=== PATIENT | male | born 1965 | race Caucasian/White ===

== ENCOUNTER 2025-07-22 10:07 | Outpatient (AMB) | payer MEDICAID, SELFPAY ==
--- OUTSIDE RECORDS SUMMARY | 2024-08-13 08:30 | XMS_ITS ---
Author Organization [facility] Address [address] [place] [address] Care Team Providers Care Front End Architect Name Role Phone NO, PCP Primary Care Provider Jazmín Paris Unavailable [phone] [facility], Nursing Unavailable [phone] REASON FOR VISIT phone: intake Social History Sex Assigned At : Social History Observation Description Sex Assigned At Male Encounters Encounter Location Date Provider Diagnosis [address] [address] 08/13/2024 Nursing [facility] Plan Of Treatment No Information Progress Notes * FAWADMartinDOB: 4 (60 yo M)Acc No.[id number]:08/13/2024 Progress Notes Patient: Martin ADLER Provider: Peter orr [facility] :1965 A ge:59 Y S ex:Male Date:08/13/2024 Address:[address] [place] [address] [id number] Pcp:PCP NO Subjective: * Chief Complaints: * 1 . Phone: intake. * Medical History: Objective: * Vitals: Assessment: Plan: * Treatment: * Images: Billing Information: * Visit Code: * Procedure Codes: * Electronic signature of Lizet rosas [facility] on 07/22/2025 at 11:24 AM EST Sign off status: Pending * Provider: Peter orr [facility] Date: 0 08/13/2024 Generated for Denisha aragon/Sky/Giorgio on: 09/22/2024 11:24 AM EST
--- NOTE | 2025-07-22 10:12 | MHC.OFFVIS ---
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 He has a 40-year history of low back pain, which began after an industrial accident in 1986. He describes the pain as a constant, 7/10 stabbing, cramping, pinching, and crushing sensation in the lower back that radiates to both legs, more pronounced on the right side, and into the thighs. Symptoms are exacerbated by standing, walking, sitting, bending down, and climbing stairs. Pain is alleviated by lying down. He reports associated muscle spasms in the back that can lock up his whole core. The pain affects his sleep, limits walking to less than a mile, and has decreased his social life and ability to do home chores. Past treatments include injections over 40 years ago which provided no relief, and a recent six-week course of physical therapy which he reports made his pain worse. He previously took propoxyphene for approximately 20 years but stopped around 2005 due to escalating doses. He has a medical history significant for degenerative joint disease, lumbar spinal stenosis, hypertension, and arthritis in his back and both hips. Patient denies any history of cardiac or respiratory issues, stroke, seizures, blood disorders, or cancer. The patient is currently on state disability and has applied for SSDI. 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 He denies smoking, alcohol use, and marijuana use. Pain Description - Onset: Approximately 40 years ago, post-industrial accident in 1986. - Location and Radiation: Lower back radiating to both legs, more pronounced on the right. - Quality and Character: Constant, stabbing, cramping, pinching, and crushing. - Exacerbating Factors: Standing, walking, sitting, bending down, climbing stairs. - Relieving Factors: Lying down and slightly bending forward. - Functional Interference: Affects sleep, limits walking, travels, restricts social and home activities. Pain Management - Affect: Pain disrupts sleep and social activities. - Analgesia: Currently using aspirin; pain rated 7/10. - Adverse Effects: None reported. - Activities of Daily Living: Limited function, impacts walking, travel, social interaction, and home chores. - Aberrant Drug Related Behaviors: None reported. Oswestry Low Back Pain Disability Score=22 [facility] Medical History (Updated 07/22/25 @ 11:49 by ELIANE Sainz) Chronic low back pain Lumbosacral spondylosis Lumbar degenerative disc disease Lumbar spinal stenosis HTN (hypertension) Review of Systems Narrative - Musculoskeletal: Reports chronic back pain radiating to legs, muscle spasms, arthritis, pain during movements, walking, bending or lifting. - Neurological: Reports pain radiating to legs, R>L. Denies bladder or bowel dysfunction or saddle anesthesia. - Psychiatric: Denies anxiety or depression. Const All systems reviewed & are unremarkable except as noted in HPI and below Card Denies chest pain at rest, Denies chest pain with activity, Denies claudication, Denies leg edema, Denies radiating jaw, neck or arm pain, Denies palpitations, Denies dyspnea and Denies dyspnea on exertion Resp Denies dyspnea and Denies dyspnea on exertion Endo Denies palpitations Physical Exam Vital Signs: Last Vital Signs Pulse 82 07/22/25 10:19 BP 205/117 H 07/22/25 10:20 Pulse Ox 98 07/22/25 10:19 Oxygen Delivery Method Room Air 07/22/25 10:19 BMI result Body Mass Index 31.9 General: Appears afebrile. Alert and oriented. Mood and affect appropriate. Follows and participates in conversation appropriately. Respiratory effort is unlabored. No cough. Able to transition from sit to stand unassisted. Moderate difficulty rising from seated position due to pain. Ambulates with antalgic gait, with mild limping. General: Yes no CVA tenderness Back/Spine/Pelvis Other: Limited lumbar ROM due to pain with flexion, bending and extension. No midline TTP in cervical, thoracic or lumbar regions. Demonstrates 5/5 left and 4/5 right strength of quadriceps bilaterally as well as flexion/dorsiflexion of bilateral feet against resistance. 2+ pedal pulses bilaterally. Straight leg rise with dorsiflexion positive bilaterally. +1 patellar and achilles reflexes bilaterally. Facet loading test positive bilaterally. Mild groin pain with I/E hip rotations on the right. Valsalva maneuver is positive. Back: no CVA tenderness Cervical Spine: cervical ROM normal, cervical muscular tenderness, No Cervical spine scars present and No Cervical spine tenderness Thoracic/Lumbar Spine: thoracic and lumbar spine normal to inspection, No Thoracic/lumbar spine scar(s), Lasegue's sign positive bilateral and localized, pain with thoraco-lumbar ROM, paraspinal muscle tenderness, thoraco-lumbar ROM limited, No thoracic spinal tenderness and lumbar spinal tenderness (L4-S1) Sacroiliac joints: bilaterally (+Vaughn's ) tender to palpation Extrem General: Yes capillary refill normal, Yes no clubbing, cyanosis or edema and Yes no calf tenderness Results Reviewed Results Reviewed: MRI LUMBAR SPINE WITHOUT CONTRAST 05/26/25 [facility] CLINICAL INFORMATION: Low back pain with bilateral lower extremity TECHNICAL INFORMATION: 1. Sagittal and axial T1. 2. Sagittal and axial T2. 3. Sagittal STIR. SEDATION: None. COMPARISON: None. INTERPRETATION: There is well-formed disc S1-S2. Conus shows normal tapering and ends at L1. Included cord has normal internal signal and cauda equina is unremarkable. L5-S1: Advanced disc degeneration. There is likely vacuum phenomena with small Schmorl's nodes across the endplates endplates and intensive Modic type I endplate changes. Posterior disc osteophyte complex contacts traversing S1 nerves and results in mild bilateral foraminal narrowing, greater to the right. L4-5: Moderate disc degeneration with mild retrolisthesis. Posterior disc osteophyte complex indents the ventral aspect of the thecal sac and results in mild bilateral foraminal narrowing. L3-4: Mild to moderate disc degeneration with mild retrolisthesis. Left far lateral annular fissure is present. No disc contour abnormality, spinal canal or significant foraminal stenosis is identified. L2-3: Mild disc degeneration with mild retrolisthesis. A shallow 2 mm central disc protrusion indents the ventral aspect of the thecal sac without neural impingement. No neural foraminal narrowing. L1-2: Disc height and hydration are preserved. No disc contour abnormality, spinal canal or foraminal stenosis is identified. T12-L1: Mild disc desiccation and moderate disc height loss. No disc contour abnormality, spinal canal or foraminal stenosis is identified. Lumbar vertebral body heights are within normal limits. With exception of the described degenerative endplate reaction marrow signal throughout the column and pelvis is unremarkable. Paraspinous soft tissues are unremarkable CONCLUSION: 1. L5-S1, advanced disc degeneration and intense discogenic endplate edema. Posterior disc osteophyte complex contacts traversing S1 nerves and results in mild bilateral foraminal narrowing, greater to the right. 2. L2-L3, shallow 2 mm central disc protrusion indents the ventral aspect of the thecal sac without impingement. 3. L4-L5, posterior disc osteophyte indents the ventral aspect of the thecal sac and results in mild bilateral foraminal narrowing. Assessment & Plan Assessment & Plan (1) Lumbar degenerative disc disease: Code(s): M51.369 - Other intervertebral disc degeneration, lumbar region without mention of lumbar back pain or lower extremity pain Category: Medical (2) Lumbosacral spondylosis: Code(s): M47.817 - Spondylosis without myelopathy or radiculopathy, lumbosacral region Category: Medical (3) Chronic low back pain: Code(s): M54.50 - Low back pain, unspecified; G89.29 - Other chronic pain Category: Medical (4) Lumbar radiculopathy: Code(s): M54.16 - Radiculopathy, lumbar region Category: Medical (5) Vertebrogenic low back pain: Code(s): M54.51 - Vertebrogenic low back pain Category: Medical Plan The management of the patient's chronic low back pain, attributed to vertebrogenic pain due to multilevel degenerative disc disease with endplate edema (Modic changes), spinal stenosis, and facet arthropathy, was thoroughly discussed. MRI findings correlate with his symptoms. Procedural options were addressed: lumbar medial branch blocks for arthritis and transforaminal epidural steroid injection for discogenic pain, radiculopathy, and disc edema. Future advanced procedural options, such as Intracept basivertebral nerve ablation and spinal cord stimulation, were introduced for consideration if injections prove insufficient. The patient also planning a second opinion from [facility] and plans to consult them soon. Arrangements will be made to acquire comprehensive medical records from his primary care provider and imaging from [facility]. Follow-up will occur as required, contingent upon his decision. Patient was strongly advised to go to ER for elevated BP with known HTN and recent intake of his BP medications. He is asymptomatic and reports his BP usually runs this high. Patient declined ER visit and plans to follow up with his PCP. All questions and concerns have been answered and patient agreed with the treatment plan. Follow up as needed. Patient was informed and verbally consented to the use of an ambient scribe for clinic note documentation during this visit. Coding Level of Care Code New Pt Level 4 (65122) Diagnoses Lumbar degenerative disc disease M51.369 Lumbosacral spondylosis M47.817 Chronic low back pain M54.50; G89.29 Lumbar radiculopathy M54.16 Vertebrogenic low back pain M54.51
[2025-07-22 10:19] VITALS: BP 216/114; PULSE 82; O2SAT 98; BMI 31.9
[2025-07-22 10:20] VITALS: BP 205/117
[2025-07-22 10:58] VITALS: BP 208/124
--- OUTSIDE RECORDS SUMMARY | 2025-07-22 11:24 | XMS_ITS | Clinical Summary ---
Author Organization [facility] [employer] Address [address] [place] [address] Care Team Providers Care Supervisor Personnel Clerks Name Role Phone Unavailable Primary Care Provider Unavailabl e Social History Tobacco Use Types Packs/Day Years Used Date Smoking Tobacco: Never Assessed Sex and Gender Information Value Date Recorded Sex Assigned at Not on file Legal Sex Male 9:22 PM EDT Gender Identity Not on file Sexual Orientation Not on file Plan of Treatment Health Maintenance Due Date Last Done Comments CT Colonography 1964 Colonoscopy 1965 Depression Screening 1965 FIT DNA/Cologuard 1965 FOBT 1965 Lipid Panel 1965 SDOH Screening 1965 Sigmoidoscopy 1965 Disability Screening 1965 Alcohol/Substance Use Screening 1976 Tobacco Screening 1976 Hepatitis C Screening 1982 DTaP/Tdap/Td Vaccines (1 - Tdap) 1983 Pneumococcal Vaccine: 50+ Years (1 of 1 - PCV) 2014 Zoster Vaccines (1 of 2) 2014 COVID-19 Vaccine (1 - 2024-2 6 season) 2025 Influenza Vaccine (#1) 2025 Colorectal Cancer Screening 01/11/2026 FIT 01/11/2026 01/11/2025, 01/10/2025 RSV Patients and Patients Aged 60 years or older (1 - 1-dose 75+ series) 2039 HIV Screening Completed 08/20/2024 HIB Vaccines Aged Out No longer eligi ble based on patient's age to complete this topic HPV Vaccines Aged Out No longer eligi ble based on patient's age to complete this topic Hepatitis A Vaccines Aged Out No long er eligible based on patient's age to complete this topic Hepatitis B Vaccines Aged Out No long er eligible based on patient's age to complete this topic IPV Vaccines Aged Out No longer eligi ble based on patient's age to complete this topic Meningococcal B Vaccine Aged Out No l onger eligible based on patient's age to complete this topic Meningococcal Vaccine Aged Out No austyn henry eligible based on patient's age to complete this topic RSV under 20 months Aged Out No longe r eligible based on patient's age to complete this topic Rotavirus Vaccines Aged Out No longer eligible based on patient's age to complete this topic
--- OUTSIDE RECORDS SUMMARY | 2025-07-22 11:24 | XMS_ITS | Patient Health Record ---
Author Organization [facility] Address [address] [place] [address] Care Team Providers Care Janitor Caretaker Name Role Phone NO, PCP Primary Care Provider Jazmín Paris Unavailable [phone] [facility], Nursing Unavailable [phone] Reason For Referral No Information Social History Sex Assigned At : Social History Observation Description Sex Assigned At Male Plan Of Treatment No Information Insurance Providers Payer Name Payer Address Payer Phone Subscriber Number Group Number Insured Name Patient Relationship to Insured Coverage Start Date Coverage End Date [place] Medicaid Standard [address] [place] [address] [id number] Martin Celestin Self - patient is the insured 4
== END 2025-07-22 10:52 | disposition home or self-care (01) ==
LOC: HO.PMC 10:07
PROVIDERS: Referring Provider Physician Assistant; Visit Provider Nurse Practitioner Family
DX: M51.369 Other intervertebral disc degeneration, lumbar region without mention of lumbar back pain or lower extremity pain (principal); M47.817 Spondylosis without myelopathy or radiculopathy, lumbosacral region; M54.50 Low back pain, unspecified; G89.29 Other chronic pain; M54.16 Radiculopathy, lumbar region; M54.51 Vertebrogenic low back pain
CPT/HCPCS: 99204

== ENCOUNTER → 2025-07-22 10:07 | Outpatient (BNVA) | payer MEDICAID, SELFPAY | PROVIDERS: Referring Provider Physician Assistant; Visit Provider Nurse Practitioner Family | DX: G89.29 Other chronic pain (principal); M51.360 Other intervertebral disc degeneration, lumbar region with discogenic back pain only; M47.26 Other spondylosis with radiculopathy, lumbar region | CPT/HCPCS: 99212 ==